=== PATIENT | female | born 2000 | race Caucasian/White ===

== ENCOUNTER 2021-10-19 21:44 | Emergency (ER) | payer OTHER ==
[~2021-10-19 21:44] MED LIST: BENTYL10 MG PO; IBUPROFEN800 MG PO; NORCO 5-325 TA1 EACH PO; ONDANSETRON ODT4 MG SL; PHENERGAN25 M1 PO; PRILOSEC20 MG PO; ZOFRAN4 MG PO
[2021-10-19 22:40] LABS: BASOPHIL 0.3 % (0-2); EOSINOPHIL 3.3 % (0-5); HCT 37.1 % (37.0-47.0); HGB 12.4 g/dl (12.5-16.0); LYMPHOCYTE 21.3 % (15-48); MCH 32.6 pg (25.0-31.0); MCHC 33.4 g/dL (32.0-36.0); MCV 97.6 fL (78.0-100.0); MONOCYTE 4.8 % (0-12); MPV 9.5 fL (6.0-9.5); NEUTROPHIL 69.9 % (41-80); NRBC 0; PLT 285 K/uL (150-400); RDW 12.4 % (11.5-14.0); WBC 10.4 K/uL (4.0-10.5)
[2021-10-19 22:41] LABS: BILIRUBIN NEGATIVE (NEGATIVE); BLOOD NEGATIVE Ery/uL (NEGATIVE); CLARITY CLEAR (CLEAR); COLOR YELLOW (YELLOW); GLUCOSE (U) NORMAL (NORMAL); LEUKOCYTES NEGATIVE Leu/uL (NEGATIVE); NITRITE NEGATIVE (NEGATIVE); PROTEIN NEGATIVE (NEGATIVE); SPECIFIC GRAVITY 1.025 (1.001-1.030); UROBILINOGEN 0.2 mg/dL (0.2-1.0)
[2021-10-19 22:56] LABS: BUN/CREAT RATIO (CALC) 17.5 RATIO; CREATININE 0.63 mg/dL (0.51-0.95); POTASSIUM 3.6 mmol/L (3.5-5.1)
== END 2021-10-20 00:05 | disposition home or self-care (01) ==
LOC: FER 21:44
PROVIDERS: Nurse Practitioner Family
DX: O99.891 Other specified diseases and conditions complicating pregnancy (principal); R11.2 Nausea with vomiting, unspecified; Z3A.01 Less than 8 weeks gestation of pregnancy
CPT/HCPCS: 36415; 80048; 81003; 85025; J2405; J7030

== ENCOUNTER 2021-12-15 06:41 | Emergency (ER) | payer OTHER ==
[2021-12-15 07:13] LABS: BASOPHIL 0.3 % (0-2); EOSINOPHIL 4.2 % (0-5); HCT 32.8 % (37.0-47.0); HGB 11.2 g/dl (12.5-16.0); LYMPHOCYTE 15.7 % (15-48); MCH 33.2 pg (25.0-31.0); MCHC 34.1 g/dL (32.0-36.0); MCV 97.3 fL (78.0-100.0); MONOCYTE 5.2 % (0-12); MPV 9.2 fL (6.0-9.5); NEUTROPHIL 74.1 % (41-80); NRBC 0; PLT 266 K/uL (150-400); RBC 3.37 M/uL (4.20-5.40); RDW 13.4 % (11.5-14.0); WBC 12.1 K/uL (4.0-10.5)
[2021-12-15 07:55] LABS: ALBUMIN 3.2 g/dL (3.4-5.0); BILIRUBIN - TOTAL 0.2 mg/dL (0.2-1.0); BUN/CREAT RATIO (CALC) 35.3 RATIO; CREATININE 0.51 mg/dL (0.51-0.95); GLOBULIN (CALCULATION) 3.3 g/dL; POTASSIUM 3.9 mmol/L (3.5-5.1); TOTAL PROTEIN 6.5 g/dL (6.4-8.2)
[2021-12-15] MEDS ORDERED: DOXYLAMINE-PYR1 EACH PO ×2 (11:13→11:14)
== END 2021-12-15 11:29 | disposition home or self-care (01) ==
LOC: FER 06:41
PROVIDERS: Internal Medicine
DX: O21.1 Hyperemesis gravidarum with metabolic disturbance (principal); O99.891 Other specified diseases and conditions complicating pregnancy; O99.332 Smoking (tobacco) complicating pregnancy, second trimester; R55 Syncope and collapse; F17.210 Nicotine dependence, cigarettes, uncomplicated; Z3A.14 14 weeks gestation of pregnancy; Z28.310 Unvaccinated for COVID-19
CPT/HCPCS: 36415; 80053; 83735; 85025; 93005; J3411; J3475; J7120